=== PATIENT | female | born 1990 | race Caucasian/White ===

== ENCOUNTER 2022-06-23 16:58 | Emergency (ER) | payer OTHER ==
[2022-06-23 17:12] VITALS: BP 114/75; PULSE 89; RESP 18; TEMP 98.4; BMI 25.5
== END 2022-06-23 19:22 | disposition home or self-care (01) ==
LOC: JER 16:58 → JERFT 16:58
PROC: 0HQ0XZZ Repair Scalp Skin, External Approach (ICD-10-PCS; principal; 2022-06-23)
DX: S01.112A Laceration without foreign body of left eyelid and periocular area, initial encounter (principal); W01.0XXA Fall on same level from slipping, tripping and stumbling without subsequent striking against object, initial encounter; Y93.51 Activity, roller skating (inline) and skateboarding
CPT/HCPCS: 99282-25

== ENCOUNTER 2022-06-30 13:12 | Emergency (ER) | payer OTHER ==
[2022-06-30 13:16] VITALS: BP 113/60; PULSE 81; RESP 18; TEMP 98.2; BMI 25.0
== END 2022-06-30 14:05 | disposition home or self-care (01) ==
LOC: JERFT 13:12
DX: Z48.02 Encounter for removal of sutures (principal)
CPT/HCPCS: 99281-25

== ENCOUNTER 2024-02-03 19:39 | Emergency (ER) | payer OTHER ==
[2024-02-03 19:46] VITALS: BP 100/68; PULSE 84; RESP 18; TEMP 98; BMI 26.3
[2024-02-03] MEDS ORDERED: AMOX TR/POT CLAV 875MG/125MG TABLETS (FP) ONE (20:58)
[2024-02-03] MEDS: AMOX TR/POT CLAV 875MG/125MG TABLETS (FP) PO ONE (21:00)
== END 2024-02-03 21:19 | disposition home or self-care (01) ==
LOC: JERFT 19:39
PROC: 0HQ1XZZ Repair Face Skin, External Approach (ICD-10-PCS; principal; 2024-02-03)
DX: S01.85XA Open bite of other part of head, initial encounter (principal); W54.0XXA Bitten by dog, initial encounter; Y93.84 Activity, sleeping; Y92.092 Bedroom in other non-institutional residence as the place of occurrence of the external cause
CPT/HCPCS: 12011-25; 99283-25

== ENCOUNTER 2024-04-06 19:33 | Emergency (ER) | payer OTHER ==
[2024-04-06 19:41] VITALS: BP 103/72; PULSE 72; RESP 17; TEMP 97.8; BMI 25.5
[2024-04-06] MEDS ORDERED: IBUPROFEN 600 MG TABLET (FP) PO ONE (20:15)
[2024-04-06] MEDS: IBUPROFEN 600 MG TABLET (FP) PO ONE (20:16)
== END 2024-04-06 20:19 | disposition home or self-care (01) ==
LOC: JERFT 19:33
DX: M79.674 Pain in right toe(s) (principal); W22.03XA Walked into furniture, initial encounter
CPT/HCPCS: 73610-TC-RT-FY; 73630-TC-RT-FY; 99283-25

== ENCOUNTER 2024-05-25 20:07 | Emergency (ER) | payer OTHER ==
[2024-05-25 20:16] VITALS: BP 113/77; PULSE 76; RESP 18; TEMP 98.2; BMI 26.3
[2024-05-25] MEDS ORDERED: diazePAM 5 MG TABLET ONE (22:19)
[2024-05-25] MEDS ORDERED: AMOX TR/POT CLAV 875MG/125MG TABLETS (FP) ONE (22:19)
[2024-05-25] MEDS: diazePAM 5 MG TABLET PO ONE (22:22)
[2024-05-25] MEDS: AMOX TR/POT CLAV 875MG/125MG TABLETS (FP) PO ONE (22:22)
== END 2024-05-25 23:03 | disposition home or self-care (01) ==
LOC: JERFT 20:07
DX: S01.511A Laceration without foreign body of lip, initial encounter (principal); W54.0XXA Bitten by dog, initial encounter
CPT/HCPCS: 99283-25

== ENCOUNTER 2024-05-28 19:30 | Emergency (ER) | payer OTHER ==
[2024-05-28 19:46] VITALS: BP 100/62; PULSE 73; RESP 18; TEMP 98.3; BMI 26.3
== END 2024-05-28 20:33 | disposition home or self-care (01) ==
LOC: JER 19:30 → JERFT 19:30
DX: S01.511D Laceration without foreign body of lip, subsequent encounter (principal); Z48.00 Encounter for change or removal of nonsurgical wound dressing
CPT/HCPCS: 99281-25

== ENCOUNTER 2024-08-08 23:27 | Emergency (ER) | payer OTHER ==
[2024-08-08 23:31] VITALS: BP 117/78; PULSE 91; RESP 18; TEMP 97.6; BMI 26.4
[2024-08-09] MEDS: ACETAMINOPHEN 1000 MG/100 ML BAG IVPB ONE (00:21)
[2024-08-09] MEDS: SODIUM CHLORIDE 1,000 ML IV STA (00:28)
[2024-08-09] MEDS ORDERED: FAMOTIDINE 20 MG/50 ML IVPB 20 MG/50 ML MG IVPB ONE (00:29)
[2024-08-09] MEDS ORDERED: morphine SULFATE 4 MG/ML VIAL ONE (00:29)
[2024-08-09 00:37] LABS: BASO % 0.4 % (0-2.0); EOS % 2.2 % (0-4.5); HEMATOCRIT 36.2 % (32.4-45.2); HEMOGLOBIN 12.2 GM/dL (10.7-15.3); LYMPH % 38.5 % (8-40); MCH 28.2 pg (25.7-33.7); MCHC 33.7 g/dl (32.0-36.0); MEAN CELL VOLUME 83.9 fl (80-96); MEAN PLT VOLUME 7.4 fl (7.5-11.1); MONO % 10.9 % (3.8-10.2); PLATELET COUNT 287 10^3/uL (134-434); RBC 4.32 M/mm3 (3.60-5.2); RDW 13.9 % (11.6-15.6); WHITE BLOOD COUNT 8.2 K/mm3 (4.0-10.0)
[2024-08-09] MEDS: morphine CARPU-JECT 4 MG/1 ML DISP.SYRIN IVPUSH ONE (00:38)
[2024-08-09] MEDS: FAMOTIDINE 20 MG/50 ML IVPB 20 MG/50 ML MG IVPB ONE (00:38)
[2024-08-09 00:56] LABS: POTASSIUM 4.2 mmol/L (3.5-5.1)
[2024-08-09 00:58] LABS: ALBUMIN 3.2 g/dl (3.4-5.0); BLOOD UREA NITROGEN 14.2 mg/dL (7-18); CALCIUM 8.9 mg/dL (8.5-10.1)
[2024-08-09 01:02] LABS: CREATININE 0.6 mg/dL (0.55-1.3)
[2024-08-09 01:03] LABS: BILIRUBIN,TOTAL 0.3 mg/dL (0.2-1); TOT PROT 6.3 g/dl (6.4-8.2)
== END 2024-08-09 03:35 | disposition home or self-care (01) ==
LOC: JER 23:27
PROC: 3E033GC Introduction of Other Therapeutic Substance into Peripheral Vein, Percutaneous Approach (ICD-10-PCS; principal; 2024-08-09)
PROC: 3E033NZ Introduction of Analgesics, Hypnotics, Sedatives into Peripheral Vein, Percutaneous Approach (ICD-10-PCS; 2024-08-09)
PROC: 3E0337Z Introduction of Electrolytic and Water Balance Substance into Peripheral Vein, Percutaneous Approach (ICD-10-PCS; 2024-08-09)
DX: R10.13 Epigastric pain (principal); R11.0 Nausea
CPT/HCPCS: 36415; 80053; 83605; 84703; 85025; 93005; 93010; 99284-25